=== PATIENT | male | born 1995 | race Caucasian/White ===

== ENCOUNTER 2017-11-14 00:22 | Emergency (ER) | payer SELFPAY ==
[2017-11-14] MEDS ORDERED: OLANZapine DISINTEGR 10 MG TAB PO ONE (00:27)
[2017-11-14] MEDS ORDERED: NS 1,000 ML IV ONE (00:27)
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
[2017-11-14 01:04] LABS: PLATELET COUNT 282 10^3/uL (150-400)
[2017-11-14 05:47] VITALS: BP 126/85
== END 2017-11-14 05:47 | disposition home or self-care (01) ==
LOC: EDUNIT#
DX: R41.82 Altered mental status, unspecified (principal); F16.10 Hallucinogen abuse, uncomplicated; E86.9 Volume depletion, unspecified
CPT/HCPCS: G0480